=== PATIENT | female | born 1995 | race African-American/Black ===

== ENCOUNTER 2017-03-24 10:01 | Emergency (ER) | payer SELFPAY ==
[2017-03-24 10:14] VITALS: BP 140/86
[2017-03-24] MEDS ORDERED: LIDOCAINE 1% INJ-PF (10 MG/ML) 30 ML SDV INJ ONE (10:24)
--- NOTE | 2017-03-24 10:31 | ER Document Report ---
ED General - General Chief Complaint: Abscess Stated Complaint: POSSIBLE ABSCESS Time Seen by Provider: 03/24/17 10:21 Mode of Arrival: Ambulatory Information source: Patient TRAVEL OUTSIDE OF THE [place] IN LAST 30 DAYS: No - HPI Patient complains to provider of: abscess left armpit Onset: Other - 3 days ago Onset/Duration: Gradual Quality of pain: Achy Severity: Mild Associated symptoms: None Exacerbated by: Movement Similar symptoms previously: Yes - same a few months ago Recently seen / treated by doctor: No - Related Data Allergies/Adverse Reactions: No Known Allergies Allergy (Verified 03/06/12 10:40) Past Medical History - General Information source: Patient - Social History Smoking Status: Never Smoker Chew tobacco use (# tins/day): No Frequency of alcohol use: None Drug Abuse: None Lives with: Family Family History: Reviewed & Not Pertinent Patient has suicidal ideation: No Patient has homicidal ideation: No - Past Medical History Cardiac Medical History: Denies: Hx Coronary Artery Disease, Hx Heart Attack, Hx Hypertension Pulmonary Medical History: Denies: Hx Asthma, Hx Bronchitis, Hx COPD, Hx Pneumonia Neurological Medical History: Reports: Hx Seizures - hx of/no meds/last x 1 mo ago. Denies: Hx Cerebrovascular Accident Renal/ Medical History: Denies: Hx Peritoneal Dialysis Musculoskeltal Medical History: Denies Hx Arthritis Psychiatric Medical History: Reports: Hx Attention Deficit Hyperactivity Disorder Past Surgical History: Reports: None - Immunizations Immunizations up to date: Yes Hx Diphtheria, Pertussis, Tetanus Vaccination: Yes Review of Systems - Review of Systems Constitutional: No symptoms reported EENT: No symptoms reported Cardiovascular: No symptoms reported Respiratory: No symptoms reported Gastrointestinal: No symptoms reported Genitourinary: No symptoms reported Female Genitourinary: No symptoms reported Musculoskeletal: See HPI Skin: See HPI Hematologic/Lymphatic: No symptoms reported Neurological/Psychological: No symptoms reported Physical Exam - Vital signs Vitals: Temp Pulse Resp BP Pulse Ox 98.8 F 72 16 140/86 H 97 03/24/17 10:13 03/24/17 10:13 03/24/17 10:13 03/24/17 10:13 03/24/17 10:13 Interpretation: Normal - Notes Notes: PHYSICAL EXAMINATION: GENERAL: Well-appearing, well-nourished and in no acute distress. HEAD: Atraumatic, normocephalic. EYES: Pupils equal round and reactive to light, extraocular movements intact, conjunctiva are normal. ENT: Nares patent, oropharynx clear without exudates. Moist mucous membranes. NECK: Normal range of motion, supple without lymphadenopathy LUNGS: Breath sounds clear to auscultation bilaterally and equal. No wheezes rales or rhonchi. HEART: Regular rate and rhythm without murmurs ABDOMEN: Soft, nontender, nondistended abdomen. No guarding, no rebound. No masses appreciated. Female : deferred Musculoskeletal: Normal range of motion, no pitting or edema. No cyanosis. NEUROLOGICAL: Cranial nerves grossly intact. Normal speech, normal gait. Normal sensory, motor exams PSYCH: Normal mood, normal affect. SKIN: Warm, Dry, normal turgor, no rashes. 4 cm fluctuant tender erythematous area in left axilla. Course - Vital Signs Vital signs: Temp Pulse Resp BP Pulse Ox 98.8 F 72 16 140/86 H 97 03/24/17 10:13 03/24/17 10:13 03/24/17 10:13 03/24/17 10:13 03/24/17 10:13 Procedures - Incision and Drainage Left Arm Time completed: 10:45 Type: Simple Anesthetic type: 1% Lidocaine mL's of anesthetic: 2 Blade size: 11 I&D procedure: Betadine prep applied Incision Method: Incision made by scalpel Amount/type of drainage: 3 cc purulent Notes: 03/24/17 10:31 Packed with iodoform guaze. Dressing applied. Patient tolerated procedure well.Mom was there for the entire procedure. 03/24/17 10:55 Discharge - Discharge Clinical Impression: Abscess, Status post incision and drainage Condition: Stable Disposition: HOME, SELF-CARE Instructions: Trimethoprim-Sulfa ([facility]) Additional Instructions: Warm soaks to area 3 times daily. Packing should be pulled out in 2-3 days. Take all antibiotics as prescribed. Return to the emergency department if you have fevers, worsening symptoms or any other concerns. Please follow-up the primary medical doctor in the next few days for recheck. Prescriptions: Sulfamethoxazole/Trimethoprim [Bactrim Ds Tablet] 1 each PO BID 7 Days #14 tablet
[2017-03-24] MEDS ORDERED: SULFAMETHOXAZOLE/TRIMETHOPRIM 800-160 MG TABLET PO ONE (10:49)
[2017-03-24] MEDS ORDERED: IBUPROFEN 600 MG TABLET PO ONE (10:53)
== END 2017-03-24 11:12 | disposition home or self-care (01) ==
LOC: ER 10:01
PROC: 0H9CXZZ Drainage of Left Upper Arm Skin, External Approach (ICD-10-PCS; principal; 2017-03-24)
DX: L02.412 Cutaneous abscess of left axilla (principal)
CPT/HCPCS: 99283; 81025; 10060; A6266

== ENCOUNTER 2017-08-25 07:44 | Day surgery (SDC) | payer MEDICAID ==
[~2017-08-25 07:44] MED LIST: BUPIVACAINE HCL 0.25 % INJ/PF (2.5 MG/1 ML) 30 ML VIAL ONE; CEFAZOLIN 2 GM/D5W RTU 2 GM/50 ML RTUPB IV PRN; LIDOCAINE 1% INJ-PF (10 MG/ML) 30 ML SDV ONE
[2017-08-25] MEDS ORDERED: MIDAZOLAM 2 MG/2 ML INJ ONE (09:11)
[2017-08-25] MEDS ORDERED: PROPOFOL INJ 200 MG/20 ML VIAL IV ONE (09:11)
[2017-08-25] MEDS ORDERED: FENTANYL CITRATE INJ/PF 100 MCG/2 ML AMPUL ONE (09:11)
[2017-08-25] MEDS ORDERED: DIPHENHYDRAMINE HCL 50 MG/ML VIAL IV PRN (10:14)
[2017-08-25] MEDS ORDERED: MEPERIDINE HCL/PF INJ 25 MG/1 ML DISP.SYRIN IV PRN (10:14)
[2017-08-25] MEDS ORDERED: MORPHINE SULFATE 10 MG/ML INJ IV PRN (10:14)
[2017-08-25] MEDS ORDERED: PROMETHAZINE HCL INJ 25 MG/1 ML VIAL IV PRN (10:14)
[2017-08-25] MEDS ORDERED: FENTANYL CITRATE INJ/PF 100 MCG/2 ML AMPUL IV PRN ×3 (10:14)
[2017-08-25] MEDS ORDERED: HYDROCODONE/ACETAMINOPHEN 5-325 MG TABLET PO PRN (10:56)
--- NOTE | 2017-08-25 11:02 | Operative Report ---
Nonrecallable Operative Report DATE OF SURGERY: 08/25/17 PREOPERATIVE DIAGNOSIS: Hidradenitis of the right axilla. POSTOPERATIVE DIAGNOSIS: Same as above OPERATION: 1. Excision of inflammatory granulation and fistulization of the right axilla, due to hidradenitis (3 cm of subcutaneous tissue excised). 2. Intermediate closure of 2.5 cm right axillary incision. SURGEON: JULIANN GALEANO ANESTHESIA: LMAC TISSUE REMOVED OR ALTERED: Right axillary granulation and fistula COMPLICATIONS: None apparent ESTIMATED BLOOD LOSS: Minimal PROCEDURE: Drains/implants: None. Procedure in detail: After informed consent was obtained, the patient was laid in the supine position in the operating room. The area of the right axilla was prepped and draped in a normal sterile fashion. A 2.5 cm elliptical incision was created over the area of fistulization. An ellipse of skin was removed in order to remove the fistula tract in its entirety. Subcutaneous granulation and a fistula tract was encountered. These were excised sharply in their entirety. The total area of excision was 3 cm in diameter. After all of the granulation was excised, the subcutaneous tissue was closed using 3-0 Vicryl suture in simple running fashion. The overlying skin was closed using 4-0 Vicryl Rapide suture in subcuticular fashion. A dressing was placed, and the procedure was concluded. All sponge, instrument, and needle counts were correct 2. Condition: Stable.
--- NOTE | 2017-08-25 11:03 | Discharge Summary ---
Discharge Summary (SDC) - Discharge Final Diagnosis: Hidradenitis right axilla fistula tract Date of Surgery: 08/25/17 Discharge Date: 08/25/17 Condition: Stable Treatment or Instructions: Okay to shower on Tuesday. Wash incisions with soap and water. No tub baths or swimming 2 weeks. [place] 5/325 mg p.o. every 6 hours as needed for pain Referrals: JEANIE HANEY MD [Primary Care Provider] - Discharge Diet: As Tolerated Respiratory Treatments at Home: Deep Breathing/Coughing, Incentive Spirometer Discharge Activity: Slowly Increase Activity Home Care Assistance: None Needed Report the Following to Your Physician Immediately: Shortness of Breath, Nausea , Vomiting, Increase in Pain, Fever over 101 Degrees, Unusual Bleeding, Redness , Swelling, Warmth
[2017-08-25 12:43] VITALS: BP 110/73
== END 2017-08-25 12:58 | disposition home or self-care (01) ==
LOC: OROUT 07:44
PROVIDERS: ATTEND Surgery
DX: L73.2 Hidradenitis suppurativa (principal); R56.9 Unspecified convulsions; Z79.899 Other long term (current) drug therapy; Z79.1 Long term (current) use of non-steroidal anti-inflammatories (NSAID); Z01.818 Encounter for other preprocedural examination
CPT/HCPCS: 81025; 11450; J2250; J3010; J3490; S0020; J2704; J0690; 400

== ENCOUNTER 2018-05-04 17:27 | Emergency (ER) | payer MEDICAID ==
[2018-05-04 17:54] VITALS: BP 122/70
== END 2018-05-04 19:35 | disposition left against medical advice (07) ==
LOC: ER 17:27
DX: Z53.21 Procedure and treatment not carried out due to patient leaving prior to being seen by health care provider (principal)

== ENCOUNTER 2019-10-16 14:03 | Emergency (ER) | payer MEDICAID ==
[2019-10-16 14:15] VITALS: BP 145/82
[2019-10-16] MEDS ORDERED: ONDANSETRON 4 MG TAB.RAPDIS PO ONE (14:54)
--- NOTE | 2019-10-16 14:54 | ER Document Report ---
ED General - General Chief Complaint: Headache Stated Complaint: HEADACHE,VOMITING,ABDOMINAL PAIN Time Seen by Provider: 10/16/19 14:14 Primary Care Provider: JEAINE HANEY MD [Primary Care Provider] - Follow up as needed TRAVEL OUTSIDE OF THE [place] IN LAST 30 DAYS: No - HPI Notes: Chief complaint: Headache, back pain and urinary frequency History of present illness: Previously healthy 24-year-old female on no regular medications with no known allergies no prior hospitalizations or surgery states she developed a dull headache last night took some [id number] medication which relieved this. When she awakened this morning she felt nauseated without vomiting and she also complains of some back pain on the right side with some urinary frequency. Patient is on contraceptive implant and has irregular periods. Non-smoker. Denies abuse of drugs or alcohol. - Related Data Allergies/Adverse Reactions: No Known Allergies Allergy (Verified 05/04/18 17:44) Past Medical History - General Information source: Patient - Social History Smoking Status: Never Smoker Frequency of alcohol use: None Drug Abuse: None Lives with: Family Family History: Reviewed & Not Pertinent - Medical History Medical History: Negative - Past Medical History Cardiac Medical History: Denies: Hx Coronary Artery Disease, Hx Heart Attack, Hx Hypertension Pulmonary Medical History: Denies: Hx Asthma, Hx Bronchitis, Hx COPD, Hx Pneumonia Neurological Medical History: Reports: Hx Seizures - hx of/no meds, last 04/2014. Denies: Hx Cerebrovascular Accident Renal/ Medical History: Denies: Hx Peritoneal Dialysis Musculoskeletal Medical History: Denies Hx Arthritis Psychiatric Medical History: Reports: Hx Attention Deficit Hyperactivity Disorder - Immunizations Immunizations up to date: Yes Hx Diphtheria, Pertussis, Tetanus Vaccination: Yes Review of Systems - Review of Systems Notes: Constitutional: Negative for fever. HENT: Negative for sore throat. Eyes: Negative for visual changes. Cardiovascular: Negative for chest pain. Respiratory: Negative for shortness of breath. Gastrointestinal: As per HPI. No diarrhea.. Genitourinary: As per HPI. Musculoskeletal: As per HPI. Skin: Negative for rash. Neurological: Negative for headaches, focal weakness or numbness. 10 point ROS negative except as marked above and in HPI. Physical Exam - Vital signs Vitals: Temp Pulse Resp BP Pulse Ox 99.6 F 87 16 145/82 H 100 10/16/19 14:12 10/16/19 14:12 10/16/19 14:12 10/16/19 14:12 10/16/19 14:12 - Notes Notes: GENERAL: Slender female approximately stated age appearing in no acute distress. SKIN: Good turgor no rashes. HEAD: Normocephalic atraumatic. EYES: PERRLA. EOMI. Conjunctivae and sclerae clear. EARS: CANALS AND TMS CLEAR. NOSE: CLEAR. MOUTH: Moist mucosa. Good dentition. No stridor or edema. No drooling. NECK: Supple. No masses or thyromegaly. No adenopathy. Carotids 2+ without bruits. No JVD. BACK: Symmetrical without tenderness. CHEST: Respirations unlabored. Breath sounds clear and symmetrical. HEART: Regular rhythm. No murmur gallop or rub. ABDOMEN: Soft nontender without masses, organomegaly or rebound. Bowel sounds normally active. No bruits. GENITALIA: Deferred. EXTREMITIES: No edema. No calf tenderness. Cap refill less than 1.5 seconds. Dorsalis pedis and posterior tibial pulses 3+ and symmetrical. NEUROLOGICAL: GCS 15. Alert and oriented x3. Normal gait. Fluent speech. Cranial nerves II through XII intact. Sensorimotor and cerebellar normal. Normal tone. PSYCHIATRIC: Appropriate affect. Course - Re-evaluation Re-evalutation: 10/16/19 18:17 The patient does not look toxic. Clinically it sounds like she probably had a urinary tract infection. She is got large leukocyte esterase with a few white cells in her urine. Her WBC was mildly elevated on her CBC. She does not have a fever here. She is not vomiting although she reports some nausea at home. I was surprised that she has a creatinine elevated 2.1. Her chemistries otherwise unremarkable. She says she has no prior knowledge of any renal problems. I have hydrated her here with 1 L normal saline. She is taking fluids without any difficulty. We can give her 1 dose of IV Rocephin. She will need to have a creatinine repeated within the next 24 hours. She can either go to her primary care doctor for this but she may return here if she is not able to get in to the primary care office. Findings, clinical impression and plan of treatment have been discussed with patient/family. Understanding of current findings and recommendations has been acknowledged by them and there is agreement regarding disposition and follow-up. - Vital Signs Vital signs: Temp Pulse Resp BP Pulse Ox 99.6 F 87 16 145/82 H 100 10/16/19 14:15 10/16/19 14:12 10/16/19 14:12 10/16/19 14:12 10/16/19 14:12 - Laboratory Result Diagrams: 10/16/19 15:15 10/16/19 15:15 Laboratory results interpreted by me: 10/16/19 10/16/19 10/16/19 15:15 15:15 15:15 WBC 11.6 H RBC 5.94 H Hgb 11.0 L MCV 62 L MCH 18.5 L MCHC 29.9 L RDW 21.3 H Lymph % (Auto) 6.4 L Absolute Neuts (auto) 9.8 H Seg Neutrophils % 84.7 H Creatinine 2.11 H Est GFR ( Amer) 35 L Est GFR (MDRD) Non-Af 29 L Calcium 10.5 H Urine Protein 30 H Urine Blood SMALL H Leukocyte Esterase Rfl LARGE H Discharge - Discharge Clinical Impression: Acute kidney injury Urinary tract infection Qualifiers: Urinary tract infection type: site unspecified Hematuria presence: without hematuria Qualified Code(s): N39.0 - Urinary tract infection, site not specified Condition: Stable Disposition: HOME, SELF-CARE Instructions: Urinary Tract Infection ([facility]) Additional Instructions: Increase oral fluids. Take prescribed medication as instructed. You need to have a serum creatinine level rechecked tomorrow. You may either go to your primary care doctor for this or return to the emergency department. Prescriptions: Cephalexin Monohydrate [Keflex 500 mg Capsule] 500 mg PO Q6H 10 Days #40 capsule Referrals: JEANIE HANEY MD [Primary Care Provider] - Follow up as needed
[2019-10-16 15:46] LABS: APPEARANCE,URINE CLOUDY; BILIRUBIN,URINE NEGATIVE (NEGATIVE); COLOR,URINE YELLOW; GLUCOSE, URINE NEGATIVE (NEGATIVE); KETONES,URINE NEGATIVE (NEGATIVE); PROTEIN,URINE 30 mg/dL (NEGATIVE); URINE SPECIFIC GRAVITY 1.002; UROBILINOGEN,URINE NEGATIVE mg/dL (<2.0)
[2019-10-16 15:52] LABS: ANION GAP 13 (5-19); BLOOD UREA NITROGEN 11 mg/dL (7-20); CALCIUM 10.5 mg/dL (8.4-10.2); CARBON DIOXIDE 22 mmol/L (22-30); CHLORIDE 103 mmol/L (98-107); GLUCOSE 86 mg/dL (75-110); POTASSIUM 4.6 mmol/L (3.6-5.0)
[2019-10-16 15:55] LABS: ABSOLUTE LYMPHOCYTES (AUTO) 0.7 10^3/uL (0.5-4.7); ABSOLUTE NEUT (AUTO) 9.8 10^3/uL (1.7-8.2); BASOPHILS % (AUTO) 0.3 % (0-2); HEMATOCRIT 36.7 % (36.0-47.0); LYMPHOCYTES % (AUTO) 6.4 % (13-45); MEAN CORPUSCULAR HEMOGLOBIN 18.5 pg (27.0-33.4); MEAN CORPUSCULAR HGB CONC 29.9 g/dL (32.0-36.0); MONOCYTES % (AUTO) 8.6 % (3-13); RED BLOOD COUNT 5.94 10^6/uL (3.72-5.28); RED CELL DISTRIBUTION WIDTH 21.3 % (11.5-14.0); SEGMENTED NEUTROPHILS % (AUTO) 84.7 % (42-78); TOTAL CELLS COUNTED % (AUTO) 100 %; WHITE BLOOD COUNT 11.6 10^3/uL (4.0-10.5)
[2019-10-16] MEDS ORDERED: CEFTRIAXONE INJ 1000 MG VIAL IV ONE (16:39)
[2019-10-16] MEDS ORDERED: NORMAL SALINE 1000 ML 1,000 ML IV ONE (16:40)
[2019-10-16 17:13] LABS: ANISOCYTOSIS 3+; HYPOCHROMASIA 2+; OVALOCYTES 2+; POIKILOCYTOSIS 2+; POLYCHROMASIA SLIGHT; TEAR DROP CELLS SLIGHT
[2019-10-16 17:14] LABS: PLATELET CLUMPS PRESENT; PLATELET COMMENT ADEQUATE; PLATELET LARGE PRESENT; TARGET CELLS SLIGHT
[2019-10-16 17:15] LABS: MEAN CORPUSCULAR VOLUME 62 fl (80-97)
[2019-10-16 17:16] LABS: PLATELET COUNT 263 10^3/uL (150-450)
[2019-10-17 11:31] LABS: PATH REVIEW PATHOLOGIST REVIEWED
== END 2019-10-16 18:40 | disposition home or self-care (01) ==
LOC: ER 14:03
DX: N39.0 Urinary tract infection, site not specified (principal); N17.9 Acute kidney failure, unspecified; R51 Headache; M54.9 Dorsalgia, unspecified; R35.0 Frequency of micturition; R11.0 Nausea
CPT/HCPCS: 99284; 96361; 96365; 36415; 84702; 85025; 80048; 81001; S0119; J0696; J7030

== ENCOUNTER → 2019-11-13 | Outpatient (CLI) | payer MEDICAID ==
[2019-11-13 10:54] LABS: ABSOLUTE BASOPHILS # (AUTO) 0.1 10^3/uL (0.0-0.2); ABSOLUTE EOSINOPHILS # (AUTO) 0.1 10^3/uL (0.0-0.6); ABSOLUTE LYMPHOCYTES (AUTO) 2.9 10^3/uL (0.5-4.7); ABSOLUTE MONOCYTES (AUTO) 0.6 10^3/uL (0.1-1.4); ABSOLUTE NEUT (AUTO) 3.9 10^3/uL (1.7-8.2); BASOPHILS % (AUTO) 1.2 % (0-2); EOSINOPHILS % (AUTO) 1.6 % (0-6); HEMATOCRIT 36.7 % (36.0-47.0); HEMOGLOBIN 11.5 g/dL (12.0-15.5); LYMPHOCYTES % (AUTO) 38.2 % (13-45); MEAN CORPUSCULAR HEMOGLOBIN 19.9 pg (27.0-33.4); MEAN CORPUSCULAR HGB CONC 31.3 g/dL (32.0-36.0); MONOCYTES % (AUTO) 7.8 % (3-13); PLATELET COUNT 279 10^3/uL (150-450); RED BLOOD COUNT 5.77 10^6/uL (3.72-5.28); RED CELL DISTRIBUTION WIDTH 22.9 % (11.5-14.0); SEGMENTED NEUTROPHILS % (AUTO) 51.2 % (42-78); TOTAL CELLS COUNTED % (AUTO) 100 %; WHITE BLOOD COUNT 7.7 10^3/uL (4.0-10.5)
[2019-11-13 11:21] LABS: ALKALINE PHOSPHATASE 106 U/L (38-126); ANION GAP 11 (5-19); ASPARTATE AMINO TRANSFERASE 31 U/L (14-36); BILIRUBIN,DIRECT 0.3 mg/dL (0.0-0.4); BILIRUBIN,TOTAL 0.6 mg/dL (0.2-1.3); BLOOD UREA NITROGEN 7 mg/dL (7-20); CALCIUM 10.6 mg/dL (8.4-10.2); CARBON DIOXIDE 25 mmol/L (22-30); CHLORIDE 104 mmol/L (98-107); GLUCOSE 91 mg/dL (75-110); POTASSIUM 4.4 mmol/L (3.6-5.0); TOTAL PROTEIN 8.7 g/dL (6.3-8.2)
[2019-11-13 11:41] LABS: ANISOCYTOSIS 3+
[2019-11-13 11:42] LABS: HYPOCHROMASIA 1+; POIKILOCYTOSIS 1+
[2019-11-13 11:43] LABS: OVALOCYTES 1+; PLATELET COMMENT ADEQUATE; TARGET CELLS SLIGHT; TEAR DROP CELLS SLIGHT
[2019-11-13 11:44] LABS: MEAN CORPUSCULAR VOLUME 64 fl (80-97)
[2019-11-14 13:44] LABS: PATH REVIEW PATHOLOGIST REVIEWED
== END ==
LOC: OD 10:14
PROVIDERS: ATTEND Nurse Practitioner Family
DX: N30.00 Acute cystitis without hematuria (principal); N17.9 Acute kidney failure, unspecified
CPT/HCPCS: 36415; 80053; 85025

== ENCOUNTER → 2019-12-28 | Outpatient (CLI) | payer MEDICAID ==
--- NOTE | 2019-12-28 16:21 | WOMENS IMAGING REPORT ---
EXAM DESCRIPTION: U/S BREAST UNILAT LIMITED IMAGES COMPLETED DATE/TIME: 12/28/2019 7:24 am REASON FOR STUDY: N63.20 UNSPECIFIED LUMP IN THE LEFT BREAST, UNSPECIFIED QUADRANT N63.20 UNSPECIFI ED LUMP IN THE LEFT BREAST, UNSPECIFIED QUAD COMPARISON: None TECHNIQUE: Static and Realtime grayscale interrogation of focal area(s) of concern in the left breas t(s) acquired. Selected color doppler/spectral images saved to PACS. LIMITATIONS: None. FINDINGS: Masses:At approximately 1- 2 o'clock, there is a 2.2 x 1.3 x 1.7 cm hypoechoic solid-appea ring relatively well-circumscribed mass. Wider than tall. Probable fibroadenoma. Architecture:No alteration of normal morphology. No skin thickening. No edema. Other: None. IMPRESSION: Solid mass in the left breast is probably a fibroadenoma. Further management and decis ion to biopsy should be based on correlation with risk factors, family history and clinical exam. BIRAD: 2 Benign findings.. RECOMMENDATION: RECOMMENDED FOLLOW-UP: Follow-up as clinically indicated. COMMENT: The [employer] ([employer]) has developed recommendations for screening MRI of the breasts in certain patient populations, to be used in conjunction with mammography. Breast MRI s urveillance may be appropriate for women with more than 20% lifetime risk of developing breast cancer as determined by genetic testing, significant family history of the disease, or history of mantle r adiation for Hodgkins Disease. ACR Practice Guidelines 2008. TECHNICAL DOCUMENTATION: FINDING NUMBER: (1) ASSESSMENT: (1) JOB ID: [id number] 2010 [employer]- All Rights Reserved Reading location - IP/workstation name: [email or web address]
== END ==
LOC: WI 06:50
PROVIDERS: ATTEND Nurse Practitioner Family
DX: N63.20 Unspecified lump in the left breast, unspecified quadrant (principal)
CPT/HCPCS: 76642

== ENCOUNTER 2020-03-19 07:02 | Day surgery (SDC) | payer MEDICAID ==
[2020-03-13 09:56] LABS: HEMATOCRIT 38.4 % (36.0-47.0); HEMOGLOBIN 11.6 g/dL (12.0-15.5); MEAN CORPUSCULAR HEMOGLOBIN 20.2 pg (27.0-33.4); MEAN CORPUSCULAR HGB CONC 30.2 g/dL (32.0-36.0); MEAN CORPUSCULAR VOLUME 67 fl (80-97); PLATELET COUNT 239 10^3/uL (150-450); RED BLOOD COUNT 5.73 10^6/uL (3.72-5.28); RED CELL DISTRIBUTION WIDTH 19.3 % (11.5-14.0); WHITE BLOOD COUNT 7.1 10^3/uL (4.0-10.5)
[~2020-03-19 07:02] MED LIST changes: -BUPIVACAINE HCL 0.25 % INJ/PF (2.5 MG/1 ML) 30 ML VIAL ONE; +CEFAZOLIN 1 GM/D5W RTU 1 GM/50 ML RTUPB IV ONE; +CEFAZOLIN 1 GM/D5W RTU 1 GM/50 ML RTUPB IV PRN; -CEFAZOLIN 2 GM/D5W RTU 2 GM/50 ML RTUPB IV PRN; +LACTATED RINGERS 1000 ML IV PRN; -LIDOCAINE 1% INJ-PF (10 MG/ML) 30 ML SDV ONE
[2020-03-19] MEDS ORDERED: FENTANYL CITRATE INJ/PF 100 MCG/2 ML AMPUL ONE (08:24)
[2020-03-19] MEDS ORDERED: PROPOFOL INJ 200 MG/20 ML VIAL IV ONE (08:25)
[2020-03-19] MEDS ORDERED: MIDAZOLAM 2 MG/2 ML INJ ONE (08:25)
[2020-03-19] MEDS ORDERED: MICROFIBRILLAR COLLAGEN 1 GM PACK ONE (08:25)
[2020-03-19] MEDS ORDERED: LIDOCAINE 1%/EPINEPHRINE INJ 20 ML VIAL ONE (08:25)
[2020-03-19] MEDS ORDERED: LIDOCAINE 2% INJ-PF (100 MG/5 ML) SYRINGE ONE (08:25)
[2020-03-19] MEDS ORDERED: MORPHINE SULFATE 10 MG/ML INJ IV PRN (09:05)
[2020-03-19] MEDS ORDERED: DIPHENHYDRAMINE HCL 50 MG/ML VIAL IV PRN (09:05)
[2020-03-19] MEDS ORDERED: MEPERIDINE HCL/PF INJ 25 MG/1 ML DISP.SYRIN IV PRN (09:05)
[2020-03-19] MEDS ORDERED: FENTANYL CITRATE INJ/PF 100 MCG/2 ML AMPUL IV PRN ×3 (09:05)
[2020-03-19] MEDS ORDERED: PROMETHAZINE HCL INJ 25 MG/1 ML VIAL IV PRN ×2 (09:05)
--- NOTE | 2020-03-19 09:24 | Discharge Summary ---
Discharge Summary (SDC) - Discharge Final Diagnosis: Fibroadenoma left breast Date of Surgery: 03/19/20 Discharge Date: 03/19/20 Condition: Good Forms: ASU Anesthesia D/C Instruction, Discharge POC-Surgical Service Treatment or Instructions: May shower in 48 hours, take Tylenol, or prescription provided for Toradol. Wear supportive bra; follow-up with [facility] in 10 days to 2 weeks. Prescriptions: Ketorolac Tromethamine [Toradol 10 mg Tablet] 10 mg PO Q6HP PRN #14 tablet PRN Reason: Referrals: ARIANE HALL MD [ACTIVE STAFF] - Discharge Diet: As Tolerated Discharge Activity: Activity As Tolerated Home Care Assistance: None Needed Report the Following to Your Physician Immediately: Shortness of Breath, Increase in Pain, Fever over 101 Degrees - Wear supportive bra when awake
--- NOTE | 2020-03-19 09:29 | Operative Report ---
Operative Report DATE OF SURGERY: 03/19/20 PREOPERATIVE DIAGNOSIS: Fibroadenoma left breast POSTOPERATIVE DIAGNOSIS: Same OPERATION: Ultrasound directed left breast excisional biopsy of fibroadenoma SURGEON: ARIANE WELCH SANDER WOODEN PENCILS: NATALIIA OTT ANESTHESIA: GA TISSUE REMOVED OR ALTERED: 2 masses left breast COMPLICATIONS: None ESTIMATED BLOOD LOSS: Scant INTRAOPERATIVE FINDINGS: See below PROCEDURE: The patient was taken to the preop holding area to the main operating room where general anesthesia was induced. Left arm was abducted, left axilla and breast were prepped and draped in sterile fashion. Surgical plan and surgical timeout were conducted. Focused ultrasound of the left breast revealed a 2+ centimeter fibroadenoma upper outer quadrant mid depth 2 o'clock position left breast. The overlying skin was marked, anesthetized with 1% plain lidocaine. A 3 and half centimeter long curvilinear incision was made over the left breast. Using ultrasound as a guide, we directed our dissection down to the target tissue. A 3 x 3 x 2 cm mass of subcutaneous and breast tissue was initially removed, scanned with the ultrasound, and found not to contain the target mass. By palpation and inspection of the breast cavity, we confirmed that the mass was still in the patient's left breast. An additional small mass of breast tissue was removed which contain the target fibroadenoma using ultrasound as a guide. It was removed in its entirety with electrocautery, then bivalved with a #10 blade on the back table and found to contain the mass. It was submitted to pathology for permanent analysis. Sponge and needle counts are correct, wound was checked for hemostasis and it was excellent. Wound closed with 3-0 Vicryl and skin glue. Patient tolerated procedure well, extubated, taken recovery room in stable condition. The physician pharmacy assistant, Ms. Urias, provided assistance during this case by: Assisting with retracting tissue, instillation of local anesthesia and closure of skin incisions.
[2020-03-19] MEDS ORDERED: OXYCODONE-ACETAMINOPHEN 5-325 MG TABLET PO PRN (09:35)
[2020-03-19] MEDS ORDERED: OXYCODONE-ACETAMINOPHEN 5-325 MG TABLET ONE (10:41)
[2020-03-19 12:01] VITALS: BP 128/76
[2020-03-19] MEDS ORDERED: PHENYLEPHRINE HCL INJ/PF 10 MG/1 ML SDV ONE (14:31)
[2020-03-19] MEDS ORDERED: ONDANSETRON HCL INJ/PF 4 MG/2 ML SDV ONE (14:31)
== END 2020-03-19 11:25 | disposition home or self-care (01) ==
LOC: OROUT 07:02
PROVIDERS: ATTEND Surgery
DX: D24.2 Benign neoplasm of left breast (principal); N60.82 Other benign mammary dysplasias of left breast; N62 Hypertrophy of breast; Z01.812 Encounter for preprocedural laboratory examination; Z20.822 Contact with and (suspected) exposure to COVID-19; Z86.69 Personal history of other diseases of the nervous system and sense organs
CPT/HCPCS: 19120; 36415; 85027; 87635; 81025; 88305 ×2; 88342; J2250; J0690; J3010; J3490; J2001; J2370; J2405; J2704; C9803; 400